=== PATIENT | female | born 1985 | race Caucasian/White ===

== ENCOUNTER 2016-05-13 18:12 | Emergency (ER) ==
[2016-05-13] MEDS ORDERED: NUBAIN IM ONE (19:05)
[2016-05-13] MEDS ORDERED: PHENERGAN IM ONE (19:05)
[2016-05-13] MEDS ORDERED: BENADRYL IM ONE (19:05)
--- NOTE | 2016-05-13 19:10 | PROVIDER DOCUMENTATION ---
HPI-Headache - General Chief Complaint: Headache Stated Complaint: DELGADO Time Seen by Provider: 05/13/16 18:59 Source: patient Allergies/Adverse Reactions: Patient Allergies Allergy/AdvReac Type Severity Reaction Status Date / Time sumatriptan [From Imitrex] AdvReac Mild anxiety, Verified 05/13/16 18:59 chest tightness sumatriptan succinate * AdvReac Mild anxiety, Verified 05/13/16 18:59 [From Imitrex] chest tightness Home Medications: Home Medication List Medication Instructions Recorded Confirmed Last Taken Type Diclofenac Potassium [Cataflam] 50 mg PO TID 01/05/16 05/13/16 05/13/16 17:00 History Rizatriptan Benzoate [Maxalt] 5 mg PO DAILY 01/05/16 05/13/16 04/05/16 10:30 History Duloxetine [Cymbalta] 60 mg PO DAILY 03/04/16 05/13/16 05/13/16 09:00 History Metformin E.r. [Glucophage Xr] 750 mg PO DAILY 03/04/16 05/13/16 05/12/16 17:00 History Olanzapine [Zyprexa] 5 mg PO DAILY 03/04/16 05/13/16 05/12/16 17:00 History Metoprolol Succinate E.r. [Toprol 100 mg PO DAILY 03/20/16 05/13/16 05/12/16 17: 00 History Xl] Cyclobenzaprine [Flexeril] 10 mg PO TID #20 tablet 04/23/16 05/13/16 Unknown Rx Butalbital/APAP/Caffeine [Fioricet] 1 each PO Q4H PRN PRN #7 tablet 05/13/16 Unknown Rx Pregabalin [Lyrica] 150 mg PO BID 05/13/16 05/13/16 05/13/16 09:00 History - History of Present Illness-Headache Nature of Presenting Problem: 30 y/o WF c/o DELGADO x 1 hour. Pt states that it is her typical pattern of migraine , but came on quicker today. States that she is out of her maxalt, so she only tried her diclofenac for her DELGADO, but has not worked. States nausea; denies any V/D/C. States DELGADO in frontal lobe and radiates in a tension/band-like pattern, as usual. Reports she was on her elliptical when it happened. Review of Systems - Adult - REVIEW OF SYSTEMS - ADULT Constitutional: reports: no symptoms reported. denies: chills, fever Eyes: reports: no symptoms reported. denies: blurred vision, double vision Ears, Nose, Mouth & Throat: reports: no symptoms reported. denies: ear pain, nose pain Cardiovascular: reports: no symptoms reported. denies: chest pain, palpitations Respiratory: reports: no symptoms reported. denies: dyspnea on exertion, shortness of breath Gastrointestinal: reports: see HPI, nausea. denies: abdominal pain, diarrhea, vomiting Genitourinary: reports: no symptoms reported. denies: dysuria, frequency Musculoskeletal: reports: no symptoms reported. denies: joint pain, joint swelling Integumentary: reports: no symptoms reported. denies: nail changes, rash Neurological: reports: see HPI, headache/migraines. denies: numbness, paresthesia Psychiatric: reports: no symptoms reported Endocrine: reports: no symptoms reported. denies: cold intolerance, heat intolerance Hematologic/Lymphatic: reports: no symptoms reported. denies: easy bruising, prolonged bleeding Allergic/Immunologic: reports: no symptoms reported All Other Systems: Reviewed and Negative Past History - Adult - PAST MEDICAL HISTORY-ADULT Review of Records: reports: Nursing Assessment Review, Medications Reviewed Major Childhood Illnesses: reports: denies history Cardiovascular: reports: HTN Respiratory: reports: denies history Gastrointestinal: reports: denies history Obstetrical/Gynecological: reports: other (PCOS) Genitourinary: reports: denies history Musculoskeletal: reports: arthritis, chronic pain Neurological: reports: headaches/migraines Psychiatric: reports: anxiety, depression Endocrine/Immune: reports: denies history Other Conditions: reports: denies history - PRIOR SURGERIES/PROCEDURES Surgical/Procedure History: reports: - IMMUNIZATION STATUS Childhood Immunizations: See Nurse Assessment Flu Vaccine: See Nurse Assessment - FAMILY HISTORY Family History: reviewed, not pertinent - SOCIAL HISTORY Smoking: cigarettes, less than 1 pack/day Provider spent 3-5 mins advising pt. on dangers of tobacco.: Discussed manners to quit use, and f/u contacts for add'l counseling. Physical Exam- Neurological - Physical Exam-Neuro Initial Vital Signs Reviewed: Yes General Appearance: alert, mild distress, obese Eye Exam: bilateral eye: normal inspection, PERRL, EOMI HENMT: normocephalic/atraumatic. negative: hearing deficit Head Injury: no evidence of injury Neck: full range of motion, supple, normal inspection. negative: Brudzinski's sign Respiratory: no respiratory distress Abdominal Exam: normal bowel sounds, non tender, soft. negative: distended, guarding, rigid Extremity: normal gait. negative: abnormal NV exam it senior analyst Exam: normal hearing, normal speech, PERRL. negative: abnormal eye position , abnormal pupil position, abnormal speech, facial asymmetry, facial droop, facial paresthesias, facial weakness, gaze palsy, hearing deficit (R), hearing deficit (L), tongue deviation to R, tongue deviation to L Coordination/Gait: normal gait Motor/Sensory: no motor deficit, no sensory deficit. negative: weak motor strength RUE, weak motor strength LUE, weak motor strength RLE, weak motor strength LLE Neurologic: it senior analyst II-XII nml as tested. negative: aphasia, facial droop Integumentary: normal color, normal turgor, warm/dry Psych/Mental Status: normal mood/affect, normal thought content, normal thought process, oriented x 3 Departure - Departure Time of Disposition Order: 19:06 DIAGNOSIS: Migraine Qualifiers: Migraine type: unspecified Status migrainosus presence: without status migrainosus Intractability: not intractable Qualified Code(s): G43.909 - Migraine, unspecified, not intractable, without status migrainosus Disposition: HOME 01 Certified Medical Emergency: Emergent Condition: Stable Additional Instructions: Take medications as directed. Follow up with neurologist, as scheduled for further management. ED Follow Up Instructions: You have been treated by a care provider in the Emergency Department. These instructions are being provided to you so you can have an understanding of how to care for yourself upon discharge. Upon discharge from the Emergency Department, you are responsible for making arrangements for follow-up care by a physician of your choice. Take all prescribed medications as directed. Return to the Emergency Department immediately for any new or worsening symptoms. You may call the Physician Referral phone number at [phone] to obtain a list of Physicians who are taking new patients. Prescriptions: Butalbital/APAP/Caffeine [Fioricet] 1 each PO Q4H PRN PRN #7 tablet PRN Reason: Headache Referrals: MOON YEH CRNP [Primary Care Provider] - JgJag kirkpatrick III, MD [STAFF PHYSICIAN] - Attestation - Physician/ CHANCE Attestation Patient care was provided by Advanced Practice Provider:: Yes Advanced Practice Provider:: Jazmin Tang Advanced Practice Provider documentation review:: The Mid-level provider documentation, treatment plan and medical decision making was reviewed by the physician who agrees with all treatment and medical decision making by the MLP.
[2016-05-13 19:46] VITALS: BP 145/87
== END 2016-05-13 19:46 | disposition home or self-care (01) ==
LOC: ED 18:12
DX: G43.909 Migraine, unspecified, not intractable, without status migrainosus (principal); R51 Headache; R11.0 Nausea; I10 Essential (primary) hypertension; M19.90 Unspecified osteoarthritis, unspecified site; G89.29 Other chronic pain; F41.9 Anxiety disorder, unspecified; F32.9 Major depressive disorder, single episode, unspecified; E28.2 Polycystic ovarian syndrome; E66.9 Obesity, unspecified; F17.210 Nicotine dependence, cigarettes, uncomplicated; Z71.6 Tobacco abuse counseling; Z79.899 Other long term (current) drug therapy
CPT/HCPCS: J1200; J2300; J2550

== ENCOUNTER 2016-05-17 20:48 | Emergency (ER) ==
--- NOTE | 2016-05-17 21:08 | PROVIDER DOCUMENTATION ---
HPI-General Adult - General Chief Complaint: Headache Stated Complaint: DELGADO Time Seen by Provider: 05/17/16 20:54 Source: patient Allergies/Adverse Reactions: Patient Allergies Allergy/AdvReac Type Severity Reaction Status Date / Time sumatriptan [From Imitrex] AdvReac Mild anxiety, Verified 05/13/16 18:59 chest tightness sumatriptan succinate * AdvReac Mild anxiety, Verified 05/13/16 18:59 [From Imitrex] chest tightness Home Medications: Home Medication List Medication Instructions Recorded Confirmed Last Taken Type Diclofenac Potassium [Cataflam] 50 mg PO TID 01/05/16 05/17/16 05/17/16 History Rizatriptan Benzoate [Maxalt] 5 mg PO DAILY 01/05/16 05/17/16 04/30/16 History Duloxetine [Cymbalta] 60 mg PO DAILY 03/04/16 05/17/16 05/17/16 History Metformin E.r. [Glucophage Xr] 750 mg PO DAILY 03/04/16 05/17/16 05/17/16 History Olanzapine [Zyprexa] 5 mg PO DAILY 03/04/16 05/17/16 05/17/16 History Metoprolol Succinate E.r. [Toprol 100 mg PO DAILY 03/20/16 05/17/16 05/17/16 History Xl] Butalbital/APAP/Caffeine [Fioricet] 1 each PO Q4H PRN PRN #7 tablet 05/13/1605/17/16 18:00 Rx Pregabalin [Lyrica] 150 mg PO BID 05/13/16 05/17/16 05/17/16 18:00 History - History of Present Illness -Gen Adult Nature of Presenting Problems: Pt. is 30 yof that presents with c/o DELGADO, Nausea, and sensitivity to light that began suddenly about 2 hours ago. Pt. reports a Hx of migraines. Pt. reports she took a fioricet but it hasn't helped. Pt. denies any other symptoms at time of exam. Location of Pain/Injury: reports: head. denies: face, mouth, neck, chest, upper extremity, hand(s), abdomen, back, pelvis, genitalia, lower extremity, feet, upper body, lower body, generalized Pain Radiation: reports: neck Quality of Pain: reports: aching, dull. denies: burning, cramping, fullness, indigestion, pressure, sharp, stabbing, tearing, throbbing, tightness Severity: reports: moderate. denies: mild, severe Onset/Duration: reports: abrupt, 1-3 hours ago Timing: reports: still present, improving. denies: gone now, resolved prior to arrival, intermittent, constant, changing over time, getting worse Context/Activities at Onset: reports: none. denies: recent emotional stress, recent physical stress, recent trauma history, possible bad food, cold exposure , out of country travel Modifying Factors: improves with: nothing Associated Symptoms: reports: back/neck pain, headaches, nausea, vomiting. denies: anxiety, arm pain, chest pain, constipation, cough, diaphoresis, diarrhea, dizziness, EENT symptoms, fatigue, fever/chills, genitourinary problems, heartburn, joint pain, loss of appetite, malaise, muscle aches, sinus congestion/drainage, rash, seizure, shortness of breath, sensory/motor loss, pain with inspiration, swelling/mass in abdomen, syncope, weakness, trouble walking Similar Symptoms Previously?: No Recently seen or treated by another doctor?: No Review of Systems - Adult - REVIEW OF SYSTEMS - ADULT Constitutional: reports: see HPI. denies: chills, fever, fatique Eyes: reports: see HPI. denies: discharge, blurred vision, double vision Ears, Nose, Mouth & Throat: reports: see HPI. denies: ear pain, hearing loss, sinus problem, nose pain, loose teeth, mouth/dental pain, throat pain, throat swelling Cardiovascular: reports: see HPI. denies: chest pain, heart murmur, orthopnea, palpitations, syncope Respiratory: reports: see HPI. denies: chronic cough, cough, dyspnea on exertion, pleurisy, shortness of breath, wheezing Gastrointestinal: reports: see HPI, nausea, vomiting. denies: abdominal pain, hematemesis, diarrhea, difficulty swallowing Genitourinary: reports: see HPI. denies: dysuria, frequency, flank pain, hesitency, incontinence, urgency Musculoskeletal: reports: see HPI, neck pain. denies: bone pain, back pain, joint pain, muscle aches, muscle weakness Integumentary: reports: see HPI. denies: hives, hair loss, itching, rash, skin thickening Neurological: reports: see HPI, headache/migraines. denies: ataxia, dizziness/ vertigo, numbness, seizure, tremors Psychiatric: reports: see HPI. denies: anxiety, depression, emotional problems , insomnia, panic attacks, suicidal thoughts Past History - Adult - PAST MEDICAL HISTORY-ADULT Review of Records: reports: Old Records Reviewed, Nursing Assessment Review, Medications Reviewed, Social history reviewed & non-contributory. Major Childhood Illnesses: reports: denies history Cardiovascular: reports: HTN Respiratory: reports: denies history Gastrointestinal: reports: denies history Obstetrical/Gynecological: reports: other (PCOS) Genitourinary: reports: denies history Musculoskeletal: reports: arthritis, chronic pain Neurological: reports: headaches/migraines Psychiatric: reports: anxiety, depression Endocrine/Immune: reports: denies history Other Conditions: reports: denies history - PRIOR SURGERIES/PROCEDURES Surgical/Procedure History: reports: - IMMUNIZATION STATUS Childhood Immunizations: See Nurse Assessment Flu Vaccine: See Nurse Assessment - FAMILY HISTORY Family History: reviewed, not pertinent - SOCIAL HISTORY Smoking: cigarettes, less than 1 pack/day Provider spent 3-5 mins advising pt. on dangers of tobacco.: Discussed the need to stop smoking. Physical Exam-General - PHYSICAL EXAM-ADULT Initial Vital Signs Reviewed: Yes - CONSTITUTIONAL General Appearance: alert, mild distress, obese. negative: thin, anxious, lethargic, slow to respond, obtunded, combative - EYES Eyes: PERRL/EOMI, pink conjunctivae, photophobia. negative: conjuctival exudate , scleral icterus, subconjunctival hemorrhage - HEAD, EARS, NOSE, MOUTH & THROAT HENMT: normocephalic/atraumatic, moist mucous membranes. negative: angioedema, frontal tenderness, maxillary tenderness - NECK Neck: full range of motion, supple, normal inspection, tender lateral. negative : lymphadenopathy, trachial deviation, tender midline, thyromegaly - RESPIRATORY Respiratory: lungs clear, normal breath sounds. negative: crackles, rales, rhonchi, stridor, wheezing - CARDIOVASCULAR Cardiovascular: normal peripheral pulses, regular rate, rhythm, no edema, no JVD , no murmur. negative: extra beats, friction rub, irregularly irregular - CHEST (BREASTS) Chest/Breast: deferred - GASTROINTESTINAL (ABDOMEN) Abdominal Exam: normal bowel sounds, non tender, soft. negative: distended, guarding, rigid, rebound, tenderness, hernia, mass - GENITOURINARY Female Genitalia/Pelvic Exam: deferred Rectal Exam: deferred Hemoccult Exam: deferred - LYMPHATIC Lymphatic: no adenopathy. negative: axilla node tender, cervical node tenderness - MUSCULOSKELETAL Back Exam: normal inspection, no CVA tenderness, no vertebral tenderness. negative: ecchymosis, swelling, vertebral tenderness Extremity: normal range of motion, non-tender, normal gait, normal inspection. negative: deformity, erythema, inflammation, swelling, tenderness Peripheral Pulses: radial (R): 2+, radial (L): 2+ - SKIN Integumentary: normal color, normal turgor, warm/dry, ecchymosis (Mild bruise noted to lower right ribs). negative: cyanosis, diaphoresis, erythema, jaundice , mottled, pallor, petechiae, purpura, rash, swelling, tenderness - NEUROLOGIC Neurologic: grossly normal, no motor/sensory deficits. negative: aphasia, facial droop, focal weakness, motor weakness, sensory deficit - PSYCHIATRIC Psych/Mental Status: normal mood/affect, normal thought content, normal thought process, oriented x 3. negative: anxious, paranoid, tearful Progress - PLAN OF CARE/RESULTS Progress/Plan/Lab Results: Discussed results and plan of care with patient. Patient agrees with plan and verbalizes understanding. Vital Signs Temp Pulse Resp BP Pulse Ox 05/17/16 20:50 98.2 F 75 16 148/100 98 sumatriptan [From Imitrex] Adverse Reaction (Mild, Verified 05/13/16 18:59) anxiety, chest tightness sumatriptan succinate * [From Imitrex] Adverse Reaction (Mild, Verified 18:59) anxiety, chest tightness Diclofenac Potassium [Cataflam] 50 mg PO TID 01/05/16 Rizatriptan Benzoate [Maxalt] 5 mg PO DAILY 01/05/16 Duloxetine [Cymbalta] 60 mg PO DAILY 03/04/16 Metformin E.r. [Glucophage Xr] 750 mg PO DAILY 03/04/16 Olanzapine [Zyprexa] 5 mg PO DAILY 03/04/16 Metoprolol Succinate E.r. [Toprol Xl] 100 mg PO DAILY 03/20/16 Butalbital/APAP/Caffeine [Fioricet] 1 each PO Q4H PRN PRN #7 tablet 05/13/16 Pregabalin [Lyrica] 150 mg PO BID 05/13/16 Orders Category Date Time Status ED: Urine Bedside ORDERED Care 05/17/16 20:56 Active Departure - Departure Time of Disposition Order: 21:10 DIAGNOSIS: Muscular aches Migraine Qualifiers: Migraine type: unspecified Status migrainosus presence: without status migrainosus Intractability: not intractable Qualified Code(s): G43.909 - Migraine, unspecified, not intractable, without status migrainosus Disposition: HOME 01 Certified Medical Emergency: Emergent Condition: Stable Additional Instructions: Follow up with primary care physician Rest in a cool dark room Return to ED for any concerns or worsening of symptoms ED Follow Up Instructions: You have been treated by a care provider in the Emergency Department. These instructions are being provided to you so you can have an understanding of how to care for yourself upon discharge. Upon discharge from the Emergency Department, you are responsible for making arrangements for follow-up care by a physician of your choice. Take all prescribed medications as directed. Return to the Emergency Department immediately for any new or worsening symptoms. You may call the Physician Referral phone number at [phone] to obtain a list of Physicians who are taking new patients. Attestation - Physician/ CHANCE Attestation Patient care was provided by Advanced Practice Provider:: Yes Advanced Practice Provider:: Adama Sandoval Advanced Practice Provider documentation review:: The Mid-level provider documentation, treatment plan and medical decision making was reviewed by the physician who agrees with all treatment and medical decision making by the MLP.
[2016-05-17] MEDS ORDERED: BENADRYL PO ONE (21:12)
[2016-05-17] MEDS ORDERED: PHENERGAN IM ONE (21:12)
[2016-05-17] MEDS ORDERED: NUBAIN IM ONE (21:12)
[2016-05-17 21:40] VITALS: BP 146/73
== END 2016-05-17 21:40 | disposition home or self-care (01) ==
LOC: ED 20:48
DX: G43.909 Migraine, unspecified, not intractable, without status migrainosus (principal); M79.1 Myalgia; R51 Headache; M54.2 Cervicalgia; R11.2 Nausea with vomiting, unspecified; H53.149 Visual discomfort, unspecified; I10 Essential (primary) hypertension; E28.2 Polycystic ovarian syndrome; M19.90 Unspecified osteoarthritis, unspecified site; G89.29 Other chronic pain; F41.9 Anxiety disorder, unspecified; F32.9 Major depressive disorder, single episode, unspecified; F17.210 Nicotine dependence, cigarettes, uncomplicated; Z71.6 Tobacco abuse counseling; E66.9 Obesity, unspecified; Z79.899 Other long term (current) drug therapy
CPT/HCPCS: J2300; J2550

== ENCOUNTER 2016-05-18 19:37 | Emergency (ER) ==
[2016-05-18] MEDS ORDERED: ZOFRAN ODT PO ONE (21:54)
--- NOTE | 2016-05-18 21:58 | PROVIDER DOCUMENTATION ---
HPI-General Adult - General Chief Complaint: Headache Stated Complaint: DELGADO Time Seen by Provider: 05/18/16 21:47 Source: patient Allergies/Adverse Reactions: Patient Allergies Allergy/AdvReac Type Severity Reaction Status Date / Time sumatriptan [From Imitrex] AdvReac Mild anxiety, Verified 05/18/16 19:45 chest tightness sumatriptan succinate * AdvReac Mild anxiety, Verified 05/18/16 19:45 [From Imitrex] chest tightness Home Medications: Home Medication List Medication Instructions Recorded Confirmed Last Taken Type Diclofenac Potassium [Cataflam] 50 mg PO TID 01/05/16 05/17/16 05/17/16 History Rizatriptan Benzoate [Maxalt] 5 mg PO DAILY 01/05/16 05/17/16 04/30/16 History Duloxetine [Cymbalta] 60 mg PO DAILY 03/04/16 05/17/16 05/17/16 History Metformin E.r. [Glucophage Xr] 750 mg PO DAILY 03/04/16 05/17/16 05/17/16 History Olanzapine [Zyprexa] 5 mg PO DAILY 03/04/16 05/17/16 05/17/16 History Metoprolol Succinate E.r. [Toprol 100 mg PO DAILY 03/20/16 05/17/16 05/17/16 History Xl] Butalbital/APAP/Caffeine [Fioricet] 1 each PO Q4H PRN PRN #7 tablet 05/13/1605/17/16 18:00 Rx Pregabalin [Lyrica] 150 mg PO BID 05/13/16 05/17/16 05/17/16 18:00 History Amoxicillin 500 mg PO BID #14 tablet 05/18/16 Unknown Rx Cetirizine [Zyrtec] 10 mg PO DAILY #20 tablet 05/18/16 Unknown Rx Methylprednisolone [Medrol Dosepak] 4 mg PO DIRECTED #1 package 05/18/16 Unknown Rx - History of Present Illness -Gen Adult Nature of Presenting Problems: Pt. is 30 yof that presents with c/o DELGADO with nausea. Pt. denies any photophobia but states this is the third day in a row that she has been here and reports this doesn't feel like her normal migraine. Pt. denies any other symptoms. Location of Pain/Injury: reports: head. denies: face, mouth, neck, chest, upper extremity, hand(s), abdomen, back, pelvis, genitalia, lower extremity, feet, upper body, lower body, generalized Pain Radiation: reports: no radiation Quality of Pain: reports: aching. denies: burning, cramping, dull, fullness, indigestion, pressure, sharp, stabbing, tearing, throbbing, tightness Severity: reports: mild. denies: moderate, severe Onset/Duration: reports: abrupt, this afternoon Timing: reports: still present. denies: improving, gone now, resolved prior to arrival, intermittent, constant, changing over time, getting worse Context/Activities at Onset: reports: light activity. denies: recent emotional stress, recent physical stress, recent trauma history, possible bad food, cold exposure, out of country travel Modifying Factors: improves with: nothing Associated Symptoms: reports: headaches, nausea. denies: anxiety, arm pain, back/neck pain, chest pain, constipation, cough, diaphoresis, diarrhea, dizziness, EENT symptoms, fatigue, fever/chills, genitourinary problems, heartburn, joint pain, loss of appetite, malaise, muscle aches, sinus congestion /drainage, rash, seizure, shortness of breath, sensory/motor loss, pain with inspiration, swelling/mass in abdomen, syncope, vomiting, weakness, trouble walking Similar Symptoms Previously?: Yes Recently seen or treated by another doctor?: Yes Review of Systems - Adult - REVIEW OF SYSTEMS - ADULT Constitutional: reports: see HPI. denies: chills, fever, fatique Eyes: reports: see HPI. denies: discharge, blurred vision, double vision Ears, Nose, Mouth & Throat: reports: see HPI. denies: ear pain, hearing loss, nose pain, loose teeth, mouth/dental pain, throat pain, throat swelling Cardiovascular: reports: see HPI. denies: chest pain, orthopnea, palpitations, syncope Respiratory: reports: see HPI. denies: cough, dyspnea on exertion, pleurisy, shortness of breath, wheezing Gastrointestinal: reports: see HPI, nausea. denies: abdominal pain, hematemesis , difficulty swallowing, vomiting Genitourinary: reports: see HPI. denies: dysuria, discharge, hematuria, hesitency, urgency Musculoskeletal: reports: see HPI. denies: bone pain, back pain, joint pain, joint swelling, neck pain Integumentary: reports: see HPI. denies: hives, hair loss, itching, rash, skin thickening Neurological: reports: see HPI, headache/migraines. denies: ataxia, numbness, seizure, tremors Psychiatric: reports: see HPI. denies: anxiety, depression, emotional problems , insomnia, panic attacks, suicidal thoughts Past History - Adult - PAST MEDICAL HISTORY-ADULT Review of Records: reports: Old Records Reviewed, Nursing Assessment Review, Medications Reviewed, Social history reviewed & non-contributory. Major Childhood Illnesses: reports: denies history Cardiovascular: reports: HTN Respiratory: reports: denies history Gastrointestinal: reports: denies history Obstetrical/Gynecological: reports: other (PCOS) Genitourinary: reports: denies history Musculoskeletal: reports: arthritis, chronic pain Neurological: reports: headaches/migraines Psychiatric: reports: anxiety, depression Endocrine/Immune: reports: denies history Other Conditions: reports: denies history - PRIOR SURGERIES/PROCEDURES Surgical/Procedure History: reports: - IMMUNIZATION STATUS Childhood Immunizations: See Nurse Assessment Flu Vaccine: See Nurse Assessment - FAMILY HISTORY Family History: reviewed, not pertinent - SOCIAL HISTORY Smoking: cigarettes, less than 1 pack/day Provider spent 3-5 mins advising pt. on dangers of tobacco.: Discussed the need to stop smoking. Physical Exam-General - PHYSICAL EXAM-ADULT Initial Vital Signs Reviewed: Yes - CONSTITUTIONAL General Appearance: alert, no apparent distress, obese. negative: thin, anxious , lethargic, slow to respond, obtunded, combative - EYES Eyes: PERRL/EOMI, pink conjunctivae. negative: conjuctival exudate, scleral icterus, subconjunctival hemorrhage - HEAD, EARS, NOSE, MOUTH & THROAT HENMT: normocephalic/atraumatic, moist mucous membranes. negative: angioedema, frontal tenderness, maxillary tenderness - NECK Neck: non-tender, full range of motion, supple, normal inspection. negative: lymphadenopathy, trachial deviation, thyromegaly - RESPIRATORY Respiratory: lungs clear, normal breath sounds. negative: crackles, rales, rhonchi, stridor, wheezing - CARDIOVASCULAR Cardiovascular: normal peripheral pulses, regular rate, rhythm, no edema, no JVD , no murmur. negative: extra beats, friction rub, irregularly irregular - CHEST (BREASTS) Chest/Breast: deferred - GASTROINTESTINAL (ABDOMEN) Abdominal Exam: normal bowel sounds, non tender, soft. negative: distended, guarding, rigid, rebound, tenderness, hernia, mass - GENITOURINARY Female Genitalia/Pelvic Exam: deferred Rectal Exam: deferred Hemoccult Exam: deferred - LYMPHATIC Lymphatic: no adenopathy. negative: axilla node tender, cervical node tenderness - MUSCULOSKELETAL Back Exam: normal inspection, no CVA tenderness, no vertebral tenderness. negative: ecchymosis, swelling, vertebral tenderness Extremity: normal range of motion, non-tender, normal gait, normal inspection. negative: deformity, erythema, inflammation, swelling, tenderness Peripheral Pulses: radial (R): 2+, radial (L): 2+ - SKIN Integumentary: normal color, normal turgor, warm/dry. negative: cyanosis, diaphoresis, ecchymosis, erythema, jaundice, mottled, pallor, petechiae, purpura , rash, swelling, tenderness - NEUROLOGIC Neurologic: grossly normal, no motor/sensory deficits. negative: aphasia, facial droop, focal weakness, motor weakness, sensory deficit - PSYCHIATRIC Psych/Mental Status: normal mood/affect, normal thought content, normal thought process, oriented x 3. negative: anxious, paranoid, tearful Progress - PLAN OF CARE/RESULTS Progress/Plan/Lab Results: Discussed results and plan of care with patient. Patient agrees with plan and verbalizes understanding. Vital Signs Temp Pulse Resp BP Pulse Ox 05/18/16 19:39 97.9 F 101 H 18 177/90 100 sumatriptan [From Imitrex] Adverse Reaction (Mild, Verified 05/18/16 19:45) anxiety, chest tightness sumatriptan succinate * [From Imitrex] Adverse Reaction (Mild, Verified 19:45) anxiety, chest tightness Diclofenac Potassium [Cataflam] 50 mg PO TID 01/05/16 Rizatriptan Benzoate [Maxalt] 5 mg PO DAILY 01/05/16 Duloxetine [Cymbalta] 60 mg PO DAILY 03/04/16 Metformin E.r. [Glucophage Xr] 750 mg PO DAILY 03/04/16 Olanzapine [Zyprexa] 5 mg PO DAILY 03/04/16 Metoprolol Succinate E.r. [Toprol Xl] 100 mg PO DAILY 03/20/16 Butalbital/APAP/Caffeine [Fioricet] 1 each PO Q4H PRN PRN #7 tablet 05/13/16 Pregabalin [Lyrica] 150 mg PO BID 05/13/16 Orders Category Date Time Status HEAD W/O CONTRAST [CT] Stat Exams 05/18/16 21:52 Taken Ondansetron Odt [Zofran Odt] Med 05/18/16 21:54 Discontinued 4 mg PO NOW ONE - CT/MRI 1 CT Study: Head CT Results: Right maxillary sinusitis, otherwise negative ([place]) Departure - Departure Time of Disposition Order: 23:31 DIAGNOSIS: Sinusitis Qualifiers: Sinusitis location: maxillary Chronicity: acute Recurrence: not specified as recurrent Qualified Code(s): J01.00 - Acute maxillary sinusitis, unspecified Disposition: HOME 01 Certified Medical Emergency: Emergent Condition: Stable Additional Instructions: Follow up with primary care physician Use a neti pot Take medications as directed return to ED for any concerns or worsening of symptoms ED Follow Up Instructions: You have been treated by a care provider in the Emergency Department. These instructions are being provided to you so you can have an understanding of how to care for yourself upon discharge. Upon discharge from the Emergency Department, you are responsible for making arrangements for follow-up care by a physician of your choice. Take all prescribed medications as directed. Return to the Emergency Department immediately for any new or worsening symptoms. You may call the Physician Referral phone number at [phone] to obtain a list of Physicians who are taking new patients. Prescriptions: Amoxicillin 500 mg PO BID #14 tablet Methylprednisolone [Medrol Dosepak] 4 mg PO DIRECTED #1 package Cetirizine [Zyrtec] 10 mg PO DAILY #20 tablet Attestation - Physician/ CHANCE Attestation Patient care was provided by Advanced Practice Provider:: Yes Advanced Practice Provider:: Adama Sandoval Advanced Practice Provider documentation review:: The Mid-level provider documentation, treatment plan and medical decision making was reviewed by the physician who agrees with all treatment and medical decision making by the P.
[2016-05-18] MEDS ORDERED: DECADRON IM ONE (23:30)
[2016-05-18] MEDS ORDERED: AMOXIL PO ONE (23:30)
[2016-05-18] MEDS ORDERED: ZYRTEC PO ONE (23:30)
[2016-05-18 23:58] VITALS: BP 154/85
--- NOTE | 2016-05-19 07:34 | Diag Imaging Result Document ---
PROCEDURE NAME: HEAD W/O CONTRAST - 05/18/2016 CT BRAIN WITHOUT: TECHNIQUE: Dose-reduction protocol. FINDINGS: No parenchymal hemorrhage. No epidural or subdural hematoma. No subarachnoid hemorrhage. No mass identified on this noncontrasted exam. No hydrocephalus. There is mucus with an air fluid level in the right maxillary sinus. IMPRESSION: 1. No hemorrhage. 2. Right maxillary sinusitis. A preliminary report was given at 11:17 p.m.
== END 2016-05-18 23:58 | disposition home or self-care (01) ==
LOC: ED 19:37
DX: J01.00 Acute maxillary sinusitis, unspecified (principal); R51 Headache; R11.0 Nausea; I10 Essential (primary) hypertension; E28.2 Polycystic ovarian syndrome; M19.90 Unspecified osteoarthritis, unspecified site; G89.29 Other chronic pain; F41.9 Anxiety disorder, unspecified; F32.9 Major depressive disorder, single episode, unspecified; F17.210 Nicotine dependence, cigarettes, uncomplicated; Z71.6 Tobacco abuse counseling; E66.9 Obesity, unspecified; Z79.899 Other long term (current) drug therapy
CPT/HCPCS: 70450